=== PATIENT | male | born 1965 | race Caucasian/White ===

== ENCOUNTER → 2017-02-19 | Day surgery (SDC) | payer BC ==
[~2017-02-19] VITALS: Ht 172.7 cm; Wt 106.6 kg
[~2017-02-19] MED LIST: ATOR1TAB21 PO; BUPIVACAINE/EPIN 0.25% 30 ML VIAL As Ordered ONE; KETOROLAC 60 MG/2 ML VIAL (J1885) As Ordered ONE; LR 1,000 ML IV ONE; LR 1,000 ML IV SCH; MIDAZOLAM INJ 2 MG/2 ML VIAL (J2250) As Ordered ONE; MORPHINE 2 MG/ML 1ML SYRINGE IV PRN; NORCO, ANEXSIA 5/325MG TABLET (HYDROcodone/ACETAMINOPHEN) PO PRN; ONDANSETRON 4MG/2ML VIAL (J2405) As Ordered ONE; ONDANSETRON 4MG/2ML VIAL (J2405) IV PRN; PERCOCET 5MG/325MG TAB PO PRN; PROPOFOL 500 MG/50 ML VIAL As Ordered ONE; ceFAZolin SOD 1 GM in D5W MINI-BAG PLUS 50 ML IV ONE; dexameTHASONE 4 MG/ML 1ML VIAL (J1100) As Ordered ONE; fentaNYL 100 MCG/2 ML INJECTION (J3010) IV PRN; fentaNYL 250 MCG/5 ML INJECTION (J3010) As Ordered ONE
[2017-02-19 15:15] VITALS: BP 123/65
--- NOTE | 2017-03-04 05:12 | RO ---
DATE OF PROCEDURE: 02/19/2017 PREOPERATIVE DIAGNOSIS: Umbilical hernia. POSTOPERATIVE DIAGNOSIS: Umbilical hernia. PROCEDURE: Umbilical hernia repair with ventral patch. SURGEON: Jesus Nair MD WRINGER OPERATOR: ANESTHESIA: General endotracheal anesthesia. ESTIMATED BLOOD LOSS: Minimal. FLUIDS: Crystalloid. DESCRIPTION OF PROCEDURE: The patient was brought to the operating room and was given general anesthesia. After adequate anesthesia and preoperative antibiotics were given, the patient was prepped and draped in the usual sterile fashion. Next, a periumbilical incision was made in a curvilinear fashion around the umbilicus and blunt dissection was carried after the skin incision was made onto the hernia sac itself. This was dissected off surrounding structures using a combination of blunt and sharp dissection as well as electrocautery. Eventually the base of the hernia sac was isolated from surrounding tissue. It was able to be mobilized off the umbilical tissue itself. The hernia sac was transected at the level of fascia and there was some incarcerated necrotic omental fat within the hernia sac itself, which was transected after ligating with some heavy Vicryl ties. In addition, there was a supraumbilical hernia repair that had been performed previously. This was chronically inflamed and had formed a ball of mesh itself and really did not abut the peritoneum in a nice, flat manner. A good portion of this was able to be delivered into the fascial defect and transected away with sharp dissection. Good hemostasis was achieved and the majority of the mesh was able to be removed. Once this was able to be removed, a ventral patch was placed into the peritoneal cavity and it was abutting the fascia circumferentially, covered the previous hernia repair site. The fascia was sutured to the mesh both superiorly and anteriorly, inferiorly at the tails and then the fascial defect was closed with [id number] #0 Ethibond sutures. Next, #3-0 Vicryl was used to close the dermal layer and #4-0 Vicryl was used to approximate the skin. Steri-Strips and dry sterile dressing was applied. The patient was awakened from anesthesia, brought to the recovery room awake, alert and hemodynamically stable. Sponge and needle count corrects correct times two.
== END ==
LOC: M SDC 09:48
PROVIDERS: ATTEND Surgery
DX: K42.9 Umbilical hernia without obstruction or gangrene (principal); E78.00 Pure hypercholesterolemia, unspecified; G47.30 Sleep apnea, unspecified; F17.210 Nicotine dependence, cigarettes, uncomplicated; Z91.030 Bee allergy status; J30.9 Allergic rhinitis, unspecified; Z79.899 Other long term (current) drug therapy
CPT/HCPCS: 49585; 88302; C1781; J0690; J1100; J1885; J2250; J2405; J3010

== ENCOUNTER → 2021-12-20 | Outpatient (REF) | payer BC ==
[~2021-12-20] MED LIST changes: -BUPIVACAINE/EPIN 0.25% 30 ML VIAL As Ordered ONE; -KETOROLAC 60 MG/2 ML VIAL (J1885) As Ordered ONE; -LR 1,000 ML IV ONE; -LR 1,000 ML IV SCH; -MIDAZOLAM INJ 2 MG/2 ML VIAL (J2250) As Ordered ONE; -MORPHINE 2 MG/ML 1ML SYRINGE IV PRN; -NORCO, ANEXSIA 5/325MG TABLET (HYDROcodone/ACETAMINOPHEN) PO PRN; -ONDANSETRON 4MG/2ML VIAL (J2405) As Ordered ONE; -ONDANSETRON 4MG/2ML VIAL (J2405) IV PRN; -PERCOCET 5MG/325MG TAB PO PRN; -PROPOFOL 500 MG/50 ML VIAL As Ordered ONE; -ceFAZolin SOD 1 GM in D5W MINI-BAG PLUS 50 ML IV ONE; -dexameTHASONE 4 MG/ML 1ML VIAL (J1100) As Ordered ONE; -fentaNYL 100 MCG/2 ML INJECTION (J3010) IV PRN; -fentaNYL 250 MCG/5 ML INJECTION (J3010) As Ordered ONE
== END ==
LOC: M LAB REF 16:59
PROVIDERS: ATTEND Surgery
DX: L72.0 Epidermal cyst (principal)

== ENCOUNTER 2022-10-16 12:33 | Emergency (ER) | payer BC ==
[~2022-10-16] VITALS: Ht 172.7 cm; Wt 119.2 kg
[2022-10-16 13:13] LABS: BASO # 0.1 10^3/uL (0.0-0.2); BASO % 0.8 % (0.0-1.0); EOS # 0.2 10^3/uL (0.0-0.5); EOS % 2.7 % (0.0-3.0); HEMATOCRIT 45.8 % (42.0-52.0); HEMOGLOBIN 14.9 g/dl (13.5-17.5); LYMPH # 1.5 10^3/uL (1.5-5.0); LYMPH % 19.5 % (24.0-44.0); MEAN CORPUSCULAR HEMOGLOBIN 29.6 pg (27.0-33.0); MEAN CORPUSCULAR HGB CONC 32.5 g/dl (32.0-36.5); MEAN CORPUSCULAR VOLUME 91.1 fl (80.0-96.0); MONO # 0.8 10^3/uL (0.0-0.8); NEUTROPHILS # 4.9 10^3/uL (1.5-8.5); NEUTROPHILS % 65.9 % (36.0-66.0); PLATELET COUNT, AUTOMATED 278 10^3/uL (150-450); RED BLOOD COUNT 5.03 10^6/uL (4.30-6.10); WHITE BLOOD COUNT 7.4 10^3/uL (4.0-10.0)
[2022-10-16 13:23] LABS: INR 0.95; PROTHROMBIN TIME 12.9 SECONDS (12.5-14.5)
[2022-10-16 13:24] LABS: PARTIAL THROMBOPLASTIN TIME 29.6 SECONDS (24.8-34.2)
[2022-10-16 13:44] LABS: BLOOD UREA NITROGEN 13 MG/DL (9-23); CARBON DIOXIDE LEVEL 28 MMOL/L (20-31); CHLORIDE LEVEL 104 MMOL/L (98-107); CK-MB VALUE MASS 4.7 NG/ML (<3.6); CPK CREATINE PHOSPHOKINASE 310 U/L (46-171); CREATININE FOR GFR 0.95 MG/DL (0.70-1.30); GLOMERULAR FILTRATION RATE > 60.0 (>56); GLUCOSE, FASTING 99 MG/DL (60-100); MB/CK RELATIVE INDEX 1.51 (< OR =4); POTASSIUM SERUM 4.4 MMOL/L (3.5-5.1); SODIUM LEVEL 139 MMOL/L (136-145)
[2022-10-16] MEDS ORDERED: LIDOCAINE 4% CREAM 5GM (LMX4) TOP ONE (17:10)
[2022-10-16] MEDS ORDERED: NS 1,000 ML IV ONE (17:10)
[2022-10-16] MEDS ORDERED: KETOROLAC 30 MG/ML 1ML VIAL IV ONE (17:10)
[2022-10-16 18:25] VITALS: BP 132/74
[2022-10-16 18:27] LABS: CK-MB VALUE MASS 2.6 NG/ML (<3.6)
[2022-10-16 18:30] LABS: MB/CK RELATIVE INDEX 0.91 (< OR =4)
[2022-10-16] MEDS ORDERED: IBUP-1022 PO (18:48)
== END 2022-10-16 18:55 | disposition home or self-care (01) ==
LOC: M ED 12:33
DX: R07.89 Other chest pain (principal); R94.4 Abnormal results of kidney function studies; R94.8 Abnormal results of function studies of other organs and systems; J30.89 Other allergic rhinitis; Z79.899 Other long term (current) drug therapy; Z91.030 Bee allergy status
CPT/HCPCS: 71046; 80048; 82550; 82553; 84484; 85025; 85610; 85730; 93005; 96361; 96374; 99284; J1885

== ENCOUNTER → 2023-05-15 | Outpatient (CLI) | payer BC ==
[~2023-05-15] MED LIST changes: +IBUP-1022 PO
== END ==
LOC: M WUC 13:35
PROVIDERS: ATTEND Physician Assistant
DX: S16.1XXA Strain of muscle, fascia and tendon at neck level, initial encounter (principal); S43.492A Other sprain of left shoulder joint, initial encounter; W18.30XA Fall on same level, unspecified, initial encounter; Y92.009 Unspecified place in unspecified non-institutional (private) residence as the place of occurrence of the external cause

== ENCOUNTER → 2023-06-26 | Outpatient (CLI) | payer BC | LOC: M PLAIMG 08:15 | PROVIDERS: ATTEND Physician Assistant Surgical | DX: M47.892 Other spondylosis, cervical region (principal) ==

== ENCOUNTER → 2024-02-24 | Outpatient (CLI) | payer BC | LOC: M RAD 14:31 | PROVIDERS: ATTEND Internal Medicine | DX: Z87.891 Personal history of nicotine dependence (principal) ==

== ENCOUNTER → 2024-08-13 | Outpatient (CLI) | payer BC ==
[~2024-08-13] MED LIST changes: +EPIP0.3I2 IM; +ISOVUE-370 76% 100ML VIAL As Ordered ONE
== END ==
LOC: M RAD 12:37
PROVIDERS: ATTEND Internal Medicine
DX: D38.1 Neoplasm of uncertain behavior of trachea, bronchus and lung (principal)

== ENCOUNTER → 2024-08-31 | Outpatient (REF) | payer BC ==
[~2024-08-31] MED LIST changes: -ISOVUE-370 76% 100ML VIAL As Ordered ONE
== END ==
LOC: M LAB REF 15:32
PROVIDERS: ATTEND Surgery
DX: L72.3 Sebaceous cyst (principal)

== ENCOUNTER → 2024-09-02 | Outpatient (CLI) | payer BC | LOC: M PLARAD 12:20 | PROVIDERS: ATTEND Internal Medicine Pulmonary Disease | DX: R91.8 Other nonspecific abnormal finding of lung field (principal) | CPT/HCPCS: 78815; A9552 ==

== ENCOUNTER → 2024-10-20 | Outpatient (CLI) | payer BC ==
[2024-10-20 09:27] LABS: PLATELET COUNT, AUTOMATED 233 10^3/uL (150-450)
[2024-10-20 09:39] LABS: INR 0.91; PARTIAL THROMBOPLASTIN TIME 30.2 SECONDS (24.8-34.2); PROTHROMBIN TIME 12.6 SECONDS (12.5-14.5)
== END ==
LOC: M WUC 08:10
PROVIDERS: ATTEND Internal Medicine Pulmonary Disease
DX: R91.1 Solitary pulmonary nodule (principal)

== ENCOUNTER → 2024-10-27 | Outpatient (CLI) | payer BC ==
[~2024-10-27] MED LIST changes: +LIDOCAINE 1% MDV 20ML VIAL As Ordered ONE
[2024-10-27 09:00] VITALS: TEMP 97.8
[2024-10-27 12:30] VITALS: BP 130/72; O2SAT 96
== END ==
LOC: M IRPRO 08:52
PROVIDERS: ATTEND Internal Medicine Pulmonary Disease
DX: R91.1 Solitary pulmonary nodule (principal); J95.811 Postprocedural pneumothorax

== ENCOUNTER 2024-11-03 08:38 | Day surgery (SDC) | payer BC ==
[~2024-11-03] VITALS: Ht 172.7 cm; Wt 121.2 kg
[~2024-11-03 08:38] MED LIST changes: -LIDOCAINE 1% MDV 20ML VIAL As Ordered ONE
[2024-11-03 10:38] VITALS: TEMP 97.7
[2024-11-03 11:00] VITALS: BP 122/58; O2SAT 97
== END 2024-11-03 11:09 | disposition home or self-care (01) ==
LOC: M OPP 08:38
PROVIDERS: ATTEND Internal Medicine Gastroenterology
DX: K63.5 Polyp of colon (principal); K57.30 Diverticulosis of large intestine without perforation or abscess without bleeding; K64.8 Other hemorrhoids; Z86.0100 Personal history of colon polyps, unspecified; G47.30 Sleep apnea, unspecified; Z91.030 Bee allergy status; Z91.048 Other nonmedicinal substance allergy status; Z79.899 Other long term (current) drug therapy